=== PATIENT | female | born 1950 | race African-American/Black ===

== ENCOUNTER 2025-02-11 20:27 | Emergency (ER) | payer MEDICARE, MEDICAID ==
[~2025-02-11] VITALS: Ht 170.2 cm; Wt 80.0 kg
[2025-02-11 20:44] VITALS: TEMP 37.1; O2SAT 100
[2025-02-11 21:16] LABS: BASOPHILS % 0.6 % (0.0-2.0); EOSINOPHILS % 0.7 % (0.0-5.0); HEMATOCRIT. 32.7 % (36.0-48.0); HEMOGLOBIN. 10.7 g/dL (12.0-16.0); LYMPHOCYTES % 18.5 % (20.0-50.0); MEAN PLATELET VOLUME 8.8 fl (7.4-10.4); MONOCYTES % 7.7 % (2.0-8.0); NEUTROPHILS % 72.5 % (40.0-76.0); PLATELET 304 x1000/uL (130-400); RED BLOOD CELL COUNT 3.96 mill/uL (4.2-5.4); RED CELL DISTRIBUTION WIDTH 14.8 % (11.6-14.6)
[2025-02-11 21:29] LABS: CREATININE 1.6 mg/dL (0.6-1.0); UREA NITROGEN BLOOD 30 mg/dL (9-23)
[2025-02-11 21:30] LABS: TROPONIN I HIGH SENSITIVITY 13 ng/L (3.0-34)
[2025-02-11] MEDS ORDERED: CLONIDINE 0.2MG TABLET PO ONE (22:45)
[2025-02-11] MEDS: LEVETIRACETAM 500MG PREMIX 100 ML IV ONE (23:12)
[2025-02-11] MEDS: CLONIDINE 0.1MG TABLET PO SCH (23:28)
[2025-02-12 00:10] LABS: TROPONIN I HIGH SENSITIVITY 18 ng/L (3.0-34)
[2025-02-12 00:38] VITALS: BP 125/53; PULSE 60; RESP 12; O2SAT 98
[2025-02-13] MEDS ORDERED: KEPP500 MT (09:43)
[2025-02-13] MEDS ORDERED: OXYB-52 PO (09:43)
[2025-02-13] MEDS ORDERED: FLUT50BL (09:43)
[2025-02-13] MEDS ORDERED: ROSU40TA MT (09:43)
[2025-02-13] MEDS ORDERED: BIMA2.5D4 EACHEYE (09:49)
[2025-02-13] MEDS ORDERED: AMLO5TAB6 MT (09:49)
[2025-02-13] MEDS ORDERED: FERR-71 MT (09:49)
[2025-02-13] MEDS ORDERED: BENA20TA77 MT (09:49)
[2025-02-13] MEDS ORDERED: [UNRECOGNIZED DRUG - OTHER] BOTHEYE (09:49)
[2025-02-13] MEDS ORDERED: APIX5TAB MT (09:49)
[2025-02-13] MEDS ORDERED: PIOG30TA10 MT (09:49)
[2025-02-13] MEDS ORDERED: CETI-89 MT (09:49)
[2025-02-13] MEDS ORDERED: METF-416 MT (09:49)
[2025-02-13] MEDS ORDERED: HYDR12.54 MT (09:49)
[2025-02-13] MEDS ORDERED: SERT25TA MT (09:49)
[2025-02-13] MEDS ORDERED: FAMO20TA8 MT (09:49)
[2025-02-13] MEDS ORDERED: CALC-861 MT (09:49)
[2025-02-13] MEDS ORDERED: APIX5TAB PO (10:31)
[2025-02-13] MEDS ORDERED: AMLO5TAB88 PO (10:32)
[2025-02-13] MEDS ORDERED: BENA-8 PO (10:32)
[2025-02-13] MEDS ORDERED: SERT25TA74 PO (10:32)
[2025-02-13] MEDS ORDERED: FERR325T30 PO (10:32)
[2025-02-13] MEDS ORDERED: HYDR25TA PO (10:32)
== END 2025-02-12 00:45 | disposition home or self-care (01) ==
LOC: ER 20:27 → CANBEDREQ 02-12 00:19 → ER 02-12 00:45
DX: G40.909 Epilepsy, unspecified, not intractable, without status epilepticus (principal); I10 Essential (primary) hypertension; F79 Unspecified intellectual disabilities; Z86.011 Personal history of benign neoplasm of the brain; Z79.899 Other long term (current) drug therapy
CPT/HCPCS: 99291; 96365; 70450; 80048; 85025; 84484; 36415; 71045; 93005; J1953

== ENCOUNTER 2025-02-12 20:49 | Inpatient (IN) | payer MEDICARE, MEDICAID ==
[~2025-02-12] VITALS: Ht 167.6 cm; Wt 84.8 kg
[2025-02-12 20:52] VITALS: O2SAT 96
[2025-02-12 22:53] LABS: BASOPHILS % 1.2 % (0.0-2.0); EOSINOPHILS % 1.9 % (0.0-5.0); HEMATOCRIT. 30.6 % (36.0-48.0); HEMOGLOBIN. 10.0 g/dL (12.0-16.0); LYMPHOCYTES % 40.9 % (20.0-50.0); MEAN PLATELET VOLUME 8.8 fl (7.4-10.4); MONOCYTES % 8.4 % (2.0-8.0); NEUTROPHILS % 47.6 % (40.0-76.0); PLATELET 260 x1000/uL (130-400); RED BLOOD CELL COUNT 3.69 mill/uL (4.2-5.4); RED CELL DISTRIBUTION WIDTH 15.0 % (11.6-14.6)
[2025-02-12 23:06] LABS: CREATININE 1.6 mg/dL (0.6-1.0); ETHANOL BLOOD < 10 mg/dL (<10); UREA NITROGEN BLOOD 27 mg/dL (9-23)
[2025-02-12 23:07] LABS: TROPONIN I HIGH SENSITIVITY 14 ng/L (3.0-34)
[2025-02-13] MEDS ORDERED: CLONIDINE 0.1MG TABLET PO PRN (04:30)
[2025-02-13] MEDS ORDERED: ONDANSETRON HCL 4MG/2ML INJ IV PRN (04:30)
[2025-02-13] MEDS ORDERED: IPRATROPIUM/ALBUTEROL 0.5-3(2.5)MG/3ML NEB HHN PRN (04:30)
[2025-02-13] MEDS ORDERED: ACETAMINOPHEN 325MG TABLET PO PRN ×2 (04:30)
[2025-02-13 05:21] LABS: CLARITY URINE CLEAR (CLEAR); COLOR URINE YELLOW (YELLOW); GLUCOSE URINE NEGATIVE (NEGATIVE); KETONES URINE NEGATIVE (NEGATIVE); LEUKOCYTE ESTERASE URINE TRACE (NEGATIVE); NITRITE URINE NEGATIVE (NEGATIVE); OCCULT BLOOD URINE NEGATIVE (NEGATIVE); PH URINE 6.5 (4.5-8.0); PROTEIN URINE NEGATIVE (NEGATIVE); SPECIFIC GRAVITY URINE 1.005 (1.005-1.030); UROBILINOGEN URINE 0.2 E.U./dL (0.2-1.0)
[2025-02-13 05:38] LABS: *AMPHETAMINES SCREEN URINE NEGATIVE (NEGATIVE); *BARBITURATES SCREEN URINE NEGATIVE (NEGATIVE); *BENZODIAZEPINES SCREEN URINE NEGATIVE (NEGATIVE); *COCAINE SCREEN URINE NEGATIVE (NEGATIVE); METHADONE URINE SCREEN NEGATIVE (NEGATIVE)
[2025-02-13 05:39] LABS: CANNABINOID URINE SCREEN NEGATIVE (NEGATIVE); ECSTASY MDMA SCREEN URINE NEGATIVE (NEGATIVE); OPIATES URINE SCREEN NEGATIVE (NEGATIVE); PHENCYCLIDINE URINE SCREEN NEGATIVE (NEGATIVE)
[2025-02-13 06:45] VITALS: BP 153/64; PULSE 57; RESP 18; TEMP 36.5848
[2025-02-13 06:59] LABS: BACTERIA URINE TRACE; RBC URINE NONE SEEN /hpf (0-2); SQUAMOUS EPITHELIAL CELL URINE NONE SEEN /lpf (RARE/1+); WBC URINE 0-2 /hpf (0-2)
[2025-02-13 08:00] VITALS: BP 134/60; PULSE 56; RESP 18; TEMP 36; O2SAT 100
[2025-02-13 08:23] VITALS: BP 123/42; PULSE 52; RESP 16; TEMP 36.7; O2SAT 100
[2025-02-13] MEDS ORDERED: FLUT50BL (09:43)
[2025-02-13] MEDS ORDERED: OXYB-52 PO (09:43)
[2025-02-13] MEDS ORDERED: ROSU40TA MT (09:43)
[2025-02-13] MEDS ORDERED: KEPP500 MT (09:43)
[2025-02-13] MEDS ORDERED: HYDR12.54 MT (09:49)
[2025-02-13] MEDS ORDERED: APIX5TAB MT (09:49)
[2025-02-13] MEDS ORDERED: CALC-861 MT (09:49)
[2025-02-13] MEDS ORDERED: METF-416 MT (09:49)
[2025-02-13] MEDS ORDERED: [UNRECOGNIZED DRUG - OTHER] BOTHEYE (09:49)
[2025-02-13] MEDS ORDERED: FERR-71 MT (09:49)
[2025-02-13] MEDS ORDERED: BIMA2.5D4 EACHEYE (09:49)
[2025-02-13] MEDS ORDERED: CETI-89 MT (09:49)
[2025-02-13] MEDS ORDERED: AMLO5TAB6 MT (09:49)
[2025-02-13] MEDS ORDERED: FAMO20TA8 MT (09:49)
[2025-02-13] MEDS ORDERED: PIOG30TA10 MT (09:49)
[2025-02-13] MEDS ORDERED: BENA20TA77 MT (09:49)
[2025-02-13] MEDS ORDERED: SERT25TA MT (09:49)
[2025-02-13] MEDS ORDERED: MEDICATION NOT ON FORMULARY EA (Hydrochlorothiazide 1 TAB) MT SCH (10:30)
[2025-02-13] MEDS ORDERED: APIX5TAB PO (10:31)
[2025-02-13] MEDS ORDERED: FERR325T30 PO (10:32)
[2025-02-13] MEDS ORDERED: BENA-8 PO (10:32)
[2025-02-13] MEDS ORDERED: HYDR25TA PO (10:32)
[2025-02-13] MEDS ORDERED: SERT25TA74 PO (10:32)
[2025-02-13] MEDS ORDERED: AMLO5TAB88 PO (10:32)
[2025-02-13] MEDS ORDERED: LEVETIRACETAM 500MG TABLET ONE (11:32)
[2025-02-13] MEDS ORDERED: AMLODIPINE 5MG TABLET ONE (11:32)
[2025-02-13] MEDS ORDERED: FERROUS SULFATE 325MG TABLET PO ONE (11:34)
[2025-02-13] MEDS ORDERED: APIXABAN 5 MG TABLET PO ONE (11:34)
[2025-02-13] MEDS ORDERED: SERTRALINE HCL 50MG TABLET ONE (11:34)
[2025-02-13] MEDS ORDERED: FAMOTIDINE 20MG TABLET ONE (11:34)
[2025-02-13] MEDS ORDERED: OXYBUTYNIN CHLORIDE 5MG TABLET ONE (11:35)
[2025-02-13] MEDS: APIXABAN 5 MG TABLET PO SCH (11:36)
[2025-02-13] MEDS: FERROUS SULFATE 325MG TABLET PO SCH (11:37)
[2025-02-13] MEDS: OXYBUTYNIN CHLORIDE 5MG TABLET PO SCH (11:37)
[2025-02-13] MEDS: AMLODIPINE 5MG TABLET PO SCH (11:37)
[2025-02-13] MEDS: FAMOTIDINE 20MG TABLET PO SCH (11:37)
[2025-02-13] MEDS: LEVETIRACETAM 500MG TABLET PO SCH (11:37)
[2025-02-13] MEDS ORDERED: SERTRALINE HCL 25MG TABLET ONE (11:39)
[2025-02-13] MEDS: SERTRALINE HCL 25MG TABLET PO SCH (11:41)
[2025-02-13 12:00] VITALS: BP 108/51; PULSE 61; RESP 18; TEMP 36.1; O2SAT 100
[2025-02-13] MEDS: HYDROCHLOROTHIAZIDE 12.5MG CAPSULE PO SCH (12:00)
[2025-02-13] MEDS: LISINOPRIL 20MG TABLET PO SCH (12:00)
[2025-02-13] MEDS ORDERED: LISINOPRIL 20MG TABLET ONE (12:35)
[2025-02-13] MEDS ORDERED: LISINOPRIL 2.5MG TABLET ONE (12:35)
[2025-02-13] MEDS ORDERED: CALCIUM CARBONATE/VITAMIN D3 500MG TABLET ONE (12:35)
[2025-02-13] MEDS ORDERED: HYDROCHLOROTHIAZIDE 12.5MG CAPSULE ONE (12:40)
[2025-02-13 12:49] LABS: TROPONIN I HIGH SENSITIVITY 13 ng/L (3.0-34)
[2025-02-13] MEDS: CALCIUM CARBONATE/VITAMIN D3 500MG TABLET PO SCH (13:31)
[2025-02-13 16:00] VITALS: BP 91/50; PULSE 65; RESP 18; TEMP 36.2; O2SAT 99
[2025-02-13] MEDS: MEMANTINE HCL 5MG TABLET PO SCH (18:36)
[2025-02-13 20:00] VITALS: BP 110/60; PULSE 59; RESP 17; RESP 18; TEMP 36.3; O2SAT 100
[2025-02-13] MEDS: ATORVASTATIN CALCIUM 40MG TABLET PO SCH (20:56)
[2025-02-14] VITALS (7 sets, daily range): BP systolic 99–128; BP diastolic 40–95; PULSE 59–78; RESP 16–20; TEMP 36.2–36.7; O2SAT 98–100
[2025-02-14] MEDS ORDERED: [UNRECOGNIZED DRUG - OTHER] MT SCH (09:00)
[2025-02-14] MEDS ORDERED: BENAZEPRIL HCL MT SCH (09:00)
[2025-02-14] MEDS ORDERED: MEDICATION NOT ON FORMULARY EA (Rosuvastatin Calcium (Crestor) 1 TAB) MT SCH (09:00)
[2025-02-14] MEDS ORDERED: CALCIUM CARBONATE MT SCH (09:00)
[2025-02-14] MEDS ORDERED: VITAMIN D3 MT SCH (09:00)
[2025-02-14 13:39] LABS: BASOPHILS % 1.3 % (0.0-2.0); EOSINOPHILS % 1.5 % (0.0-5.0); HEMATOCRIT. 31.8 % (36.0-48.0); HEMOGLOBIN. 10.5 g/dL (12.0-16.0); LYMPHOCYTES % 35.0 % (20.0-50.0); MEAN PLATELET VOLUME 8.8 fl (7.4-10.4); MONOCYTES % 9.7 % (2.0-8.0); NEUTROPHILS % 52.5 % (40.0-76.0); PLATELET 275 x1000/uL (130-400); RED BLOOD CELL COUNT 3.77 mill/uL (4.2-5.4); RED CELL DISTRIBUTION WIDTH 14.5 % (11.6-14.6)
[2025-02-14 13:57] LABS: CREATININE 1.5 mg/dL (0.6-1.0); UREA NITROGEN BLOOD 23 mg/dL (9-23)
[2025-02-14 13:59] LABS: PHOSPHORUS 2.8 mg/dL (2.5-4.9)
[2025-02-14 14:27] LABS: VITAMIN B12 SERUM 571 pg/mL (211-911)
[2025-02-15] VITALS: BP 134/43; PULSE 56; RESP 20; TEMP 36.3; O2SAT 99
[2025-02-15 04:00] VITALS: BP 114/53; PULSE 59; RESP 20; TEMP 36.2; O2SAT 100
[2025-02-15 08:00] VITALS: BP 113/56; PULSE 65; RESP 18; TEMP 36.6; O2SAT 100
[2025-02-15 10:21] LABS: BASOPHILS % 0.5 % (0.0-2.0); EOSINOPHILS % 1.7 % (0.0-5.0); HEMATOCRIT. 32.5 % (36.0-48.0); HEMOGLOBIN. 10.6 g/dL (12.0-16.0); LYMPHOCYTES % 29.2 % (20.0-50.0); MEAN PLATELET VOLUME 8.7 fl (7.4-10.4); MONOCYTES % 8.9 % (2.0-8.0); NEUTROPHILS % 59.7 % (40.0-76.0); PLATELET 284 x1000/uL (130-400); RED BLOOD CELL COUNT 3.93 mill/uL (4.2-5.4); RED CELL DISTRIBUTION WIDTH 14.8 % (11.6-14.6)
[2025-02-15 11:01] LABS: UREA NITROGEN BLOOD 29 mg/dL (9-23)
[2025-02-15 11:02] LABS: CREATININE 2.0 mg/dL (0.6-1.0)
[2025-02-15 11:03] LABS: PHOSPHORUS 3.3 mg/dL (2.5-4.9)
[2025-02-15 12:00] VITALS: BP 129/54; PULSE 62; RESP 18; TEMP 36.5; O2SAT 100
[2025-02-15 16:00] VITALS: BP 129/54; PULSE 62; RESP 18; TEMP 36.5; O2SAT 100
[2025-02-15 20:00] VITALS: BP 107/77; PULSE 69; RESP 20; TEMP 36.3; O2SAT 100
[2025-02-16] VITALS: BP 95/51; PULSE 72; RESP 18; TEMP 36.5; O2SAT 99
[2025-02-16 04:00] VITALS: BP 111/51; PULSE 57; RESP 18; TEMP 36.6; O2SAT 100
[2025-02-16 08:00] VITALS: BP 112/59; PULSE 68; RESP 18; TEMP 36.6; O2SAT 100
[2025-02-16] MEDS: AMLODIPINE 10MG TABLET PO SCH (09:00)
[2025-02-16] MEDS: LISINOPRIL 10MG TABLET PO SCH (09:00)
[2025-02-16 12:00] VITALS: BP 99/47; PULSE 66; RESP 16; TEMP 36.6; O2SAT 100
[2025-02-16 16:00] VITALS: BP 162/57; PULSE 64; RESP 19; TEMP 36.3; O2SAT 100
[2025-02-16 20:00] VITALS: BP 121/52; PULSE 66; RESP 20; TEMP 36.4; O2SAT 98
[2025-02-17] VITALS: BP 99/33; PULSE 62; RESP 20; TEMP 36; O2SAT 98
[2025-02-17 04:00] VITALS: BP 120/57; PULSE 63; RESP 20; TEMP 36.3; O2SAT 98
[2025-02-17 08:00] VITALS: BP 136/54; PULSE 56; RESP 17; TEMP 36.1; O2SAT 97
[2025-02-17 12:00] VITALS: BP 116/51; PULSE 69; RESP 18; TEMP 36.2; O2SAT 97
[2025-02-17 13:05] LABS: BASOPHILS % 1.2 % (0.0-2.0); EOSINOPHILS % 1.2 % (0.0-5.0); HEMATOCRIT. 33.2 % (36.0-48.0); HEMOGLOBIN. 10.7 g/dL (12.0-16.0); LYMPHOCYTES % 30.0 % (20.0-50.0); MEAN PLATELET VOLUME 9.0 fl (7.4-10.4); MONOCYTES % 9.3 % (2.0-8.0); NEUTROPHILS % 58.3 % (40.0-76.0); PLATELET 266 x1000/uL (130-400); RED BLOOD CELL COUNT 3.94 mill/uL (4.2-5.4); RED CELL DISTRIBUTION WIDTH 15.0 % (11.6-14.6)
[2025-02-17 13:20] LABS: CREATININE 1.6 mg/dL (0.6-1.0)
[2025-02-17 13:21] LABS: UREA NITROGEN BLOOD 31 mg/dL (9-23)
[2025-02-17 13:23] LABS: PHOSPHORUS 2.8 mg/dL (2.5-4.9)
[2025-02-17 16:00] VITALS: BP 137/56; PULSE 62; RESP 17; TEMP 36.2; O2SAT 97
[2025-02-17 20:00] VITALS: BP 123/53; PULSE 69; RESP 18; TEMP 36.4; O2SAT 100
[2025-02-18] VITALS: BP 106/57; PULSE 68; RESP 18; TEMP 36.9; O2SAT 98
[2025-02-18 04:00] VITALS: BP 105/49; PULSE 64; RESP 18; TEMP 36.6; O2SAT 95
[2025-02-18 08:00] VITALS: BP 128/51; PULSE 64; RESP 17; TEMP 36.3; O2SAT 98
[2025-02-18] MEDS ORDERED: BENA-8 PO (10:48)
[2025-02-18] MEDS ORDERED: PIOG30TA10 MT ×2 (10:48→12:45)
[2025-02-18] MEDS ORDERED: AMLO5TAB88 PO (10:48)
[2025-02-18] MEDS ORDERED: OXYB-52 PO (10:48)
[2025-02-18] MEDS ORDERED: ROSU40TA MT (10:48)
[2025-02-18] MEDS ORDERED: FERR-71 MT (10:48)
[2025-02-18] MEDS ORDERED: SERT25TA MT (10:48)
[2025-02-18] MEDS ORDERED: FAMO20TA8 MT (10:48)
[2025-02-18] MEDS ORDERED: KEPP500 MT (10:48)
[2025-02-18] MEDS ORDERED: FLUT50BL NAS (10:48)
[2025-02-18] MEDS ORDERED: HYDR12.54 MT ×2 (10:48→11:45)
[2025-02-18 11:20] LABS: BASOPHILS % 1.0 % (0.0-2.0); EOSINOPHILS % 1.9 % (0.0-5.0); HEMATOCRIT. 33.1 % (36.0-48.0); HEMOGLOBIN. 10.6 g/dL (12.0-16.0); LYMPHOCYTES % 25.9 % (20.0-50.0); MEAN PLATELET VOLUME 9.1 fl (7.4-10.4); MONOCYTES % 7.9 % (2.0-8.0); NEUTROPHILS % 63.3 % (40.0-76.0); PLATELET 245 x1000/uL (130-400); RED BLOOD CELL COUNT 3.94 mill/uL (4.2-5.4); RED CELL DISTRIBUTION WIDTH 14.5 % (11.6-14.6)
[2025-02-18 11:34] LABS: CREATININE 1.6 mg/dL (0.6-1.0); UREA NITROGEN BLOOD 30 mg/dL (9-23)
[2025-02-18] MEDS ORDERED: AMLO5TAB6 MT (11:34)
[2025-02-18 11:37] LABS: PHOSPHORUS 3.1 mg/dL (2.5-4.9)
[2025-02-18] MEDS ORDERED: FAMO20TA8 PO (11:45)
[2025-02-18] MEDS ORDERED: OXYB5TAB21 PO (11:45)
[2025-02-18] MEDS ORDERED: SERT25TA74 PO (11:45)
[2025-02-18] MEDS ORDERED: APIX5TAB PO (11:45)
[2025-02-18] MEDS ORDERED: KEPP500 PO (11:45)
[2025-02-18] MEDS ORDERED: AMLO10TA80 PO (11:45)
[2025-02-18] MEDS ORDERED: LIP40 MT (11:45)
[2025-02-18] MEDS ORDERED: CALC-1098 MT (11:47)
[2025-02-18 12:16] VITALS: BP 118/56; PULSE 75; RESP 17; TEMP 36.2; O2SAT 98
[2025-02-18] MEDS ORDERED: ROSU40TA PO (12:45)
[2025-02-18 15:07] VITALS: BP 107/53; PULSE 67; RESP 17; TEMP 97.5
[2025-02-18 16:00] VITALS: BP 107/53; PULSE 67; RESP 17; TEMP 36.4; O2SAT 98
== END 2025-02-18 17:10 | disposition home or self-care (01) | DRG 100 ==
LOC: ER 20:49 → EDBEDREQTM 02-13 02:31 → EDBEDREQDT 02-13 02:31 → EDBEDREQ 02-13 02:31 → ENRESERV 02-13 04:03 → 6WST 02-13 04:51
PROVIDERS: ADMIT Student in an Organized Health Care Education/Training Program; ATTEND Student in an Organized Health Care Education/Training Program
PROC: 4A00X4Z Measurement of Central Nervous Electrical Activity, External Approach (ICD-10-PCS; principal; 2025-02-14)
DX: G40.909 Epilepsy, unspecified, not intractable, without status epilepticus (principal); N17.0 Acute kidney failure with tubular necrosis; D64.9 Anemia, unspecified; N18.9 Chronic kidney disease, unspecified; I12.9 Hypertensive chronic kidney disease with stage 1 through stage 4 chronic kidney disease, or unspecified chronic kidney disease; E11.22 Type 2 diabetes mellitus with diabetic chronic kidney disease; Z79.01 Long term (current) use of anticoagulants; Z79.84 Long term (current) use of oral hypoglycemic drugs; Z79.899 Other long term (current) drug therapy
CPT/HCPCS: 36415; 71045; 80048; 80305; 80320; 81003; 82140; 82607; 83735; 84100; 84443; 84484; 85025; 93005; 95816; 96365; 99291; G0378; J1953; G0480

== ENCOUNTER 2025-03-11 20:38 | Inpatient (IN) | payer MEDICARE, MEDICAID ==
[~2025-03-11] VITALS: Ht 167.6 cm; Wt 88.5 kg
[~2025-03-11 20:38] MED LIST: AMLO10TA80 PO; APIX5TAB PO; BENA20TA77 MT; BIMA2.5D4 EACHEYE; CALC-861 MT; FAMO20TA8 PO; FERR325T30 PO; HYDR12.54 MT; KEPP500 PO; LEVE1000 MT; METF-416 MT; OXYB5TAB21 PO; PIOG30TA10 MT; ROSU40TA PO; SERT25TA74 PO
[2025-03-11 20:41] VITALS: O2SAT 99
[2025-03-11] MEDS: SODIUM CHLORIDE 0.9% 1,000 ML IV ONE (20:54)
[2025-03-11] MEDS: LEVETIRACETAM 1000MG PREMIX 100 ML IV ONE (20:56)
[2025-03-11 21:17] LABS: BASOPHILS % 0.6 % (0.0-2.0); EOSINOPHILS % 1.9 % (0.0-5.0); HEMATOCRIT. 30.1 % (36.0-48.0); HEMOGLOBIN. 9.9 g/dL (12.0-16.0); LYMPHOCYTES % 32.0 % (20.0-50.0); MEAN PLATELET VOLUME 9.3 fl (7.4-10.4); MONOCYTES % 10.0 % (2.0-8.0); NEUTROPHILS % 55.5 % (40.0-76.0); PLATELET 290 x1000/uL (130-400); RED BLOOD CELL COUNT 3.63 mill/uL (4.2-5.4); RED CELL DISTRIBUTION WIDTH 13.8 % (11.6-14.6)
[2025-03-11 21:29] LABS: CREATININE 1.5 mg/dL (0.6-1.0); UREA NITROGEN BLOOD 24.0 mg/dL (9-23)
[2025-03-11 22:28] LABS: CLARITY URINE CLEAR (CLEAR); COLOR URINE YELLOW (YELLOW); GLUCOSE URINE NEGATIVE (NEGATIVE); KETONES URINE NEGATIVE (NEGATIVE); LEUKOCYTE ESTERASE URINE NEGATIVE (NEGATIVE); NITRITE URINE NEGATIVE (NEGATIVE); OCCULT BLOOD URINE NEGATIVE (NEGATIVE); PH URINE 5.5 (4.5-8.0); PROTEIN URINE NEGATIVE (NEGATIVE); SPECIFIC GRAVITY URINE 1.020 (1.005-1.030); UROBILINOGEN URINE 0.2 E.U./dL (0.2-1.0)
[2025-03-11 22:41] LABS: *AMPHETAMINES SCREEN URINE NEGATIVE (NEGATIVE); *BARBITURATES SCREEN URINE NEGATIVE (NEGATIVE); *BENZODIAZEPINES SCREEN URINE NEGATIVE (NEGATIVE); *COCAINE SCREEN URINE NEGATIVE (NEGATIVE); METHADONE URINE SCREEN NEGATIVE (NEGATIVE)
[2025-03-11 22:42] LABS: CANNABINOID URINE SCREEN NEGATIVE (NEGATIVE); ECSTASY MDMA SCREEN URINE NEGATIVE (NEGATIVE); OPIATES URINE SCREEN NEGATIVE (NEGATIVE); PHENCYCLIDINE URINE SCREEN NEGATIVE (NEGATIVE)
[2025-03-11] MEDS ORDERED: ACETAMINOPHEN 325MG TABLET PO PRN (23:15)
[2025-03-11] MEDS ORDERED: CLONIDINE 0.1MG TABLET PO PRN (23:15)
[2025-03-11] MEDS ORDERED: ONDANSETRON HCL 4MG/2ML INJ IV PRN (23:15)
[2025-03-11] MEDS ORDERED: LORAZEPAM 2MG/ML UD SYRINGE IV PRN (23:15)
[2025-03-11] MEDS ORDERED: MAGNESIUM/ALUMINUM HYDROXIDE/SIMETHICONE 30ML UDC PO PRN (23:15)
[2025-03-11] MEDS: DIAZEPAM 5 MG/ML 2ML SYR IV ONE (23:49)
[2025-03-12] VITALS (7 sets, daily range): BP systolic 129–157; BP diastolic 54–83; PULSE 66–85; RESP 18–20; TEMP 36.1–36.5292; O2SAT 97–98
[2025-03-12] MEDS ORDERED: INFLUENZA VACCINE 05/PF 0.5 ML SYRINGE IM ONE (06:30)
[2025-03-12] MEDS ORDERED: MEDICATION NOT ON FORMULARY EA (Rosuvastatin Calcium (Crestor) 10 MG) PO SCH (09:00)
[2025-03-12] MEDS ORDERED: APIXABAN 5 MG TABLET PO SCH (09:00)
[2025-03-12] MEDS ORDERED: BENAZEPRIL HCL MT SCH (09:00)
[2025-03-12] MEDS: ENOXAPARIN 30MG/0.3ML SYR SUBCUT SCH (09:03)
[2025-03-12] MEDS: AMLODIPINE 10MG TABLET PO SCH (09:03)
[2025-03-12] MEDS: OXYBUTYNIN CHLORIDE 5MG TABLET PO SCH (09:04)
[2025-03-12] MEDS: LEVETIRACETAM 500MG TABLET PO SCH (09:04)
[2025-03-12] MEDS: LISINOPRIL 20MG TABLET PO SCH (09:04)
[2025-03-12] MEDS: SERTRALINE HCL 25MG TABLET PO SCH (09:04)
[2025-03-12] MEDS: FERROUS SULFATE 325MG TABLET PO SCH (09:04)
[2025-03-12] MEDS: LORAZEPAM 2MG/ML UD SYRINGE IV SCH (18:36)
[2025-03-12] MEDS: ACETAMINOPHEN 325MG TABLET PO PRN (19:19)
[2025-03-12] MEDS ORDERED: MEDICATION NOT ON FORMULARY EA (Bimatoprost (Lumigan) 1 DROP) EACHEYE SCH (21:00)
[2025-03-12] MEDS: ATORVASTATIN CALCIUM 40MG TABLET PO SCH (22:22)
[2025-03-12] MEDS: LATANOPROST 0.005% OPHTH DROPS 2.5ML BOTHEYE SCH (22:23)
[2025-03-13] MEDS ORDERED: LORAZEPAM 2MG/ML UD SYRINGE IV PRN ×2 (03:30→11:45)
[2025-03-13 04:00] VITALS: BP 131/87; PULSE 74; RESP 19; TEMP 36.3; O2SAT 100
[2025-03-13 05:15] LABS: CREATININE 1.3 mg/dL (0.6-1.0); UREA NITROGEN BLOOD 20 mg/dL (9-23)
[2025-03-13 05:18] LABS: PHOSPHORUS 3.0 mg/dL (2.5-4.9)
[2025-03-13 06:31] LABS: BASOPHILS % 0.4 % (0.0-2.0); EOSINOPHILS % 2.7 % (0.0-5.0); HEMATOCRIT. 29.8 % (36.0-48.0); HEMOGLOBIN. 9.8 g/dL (12.0-16.0); LYMPHOCYTES % 38.2 % (20.0-50.0); MEAN PLATELET VOLUME 9.5 fl (7.4-10.4); MONOCYTES % 10.7 % (2.0-8.0); NEUTROPHILS % 48.0 % (40.0-76.0); PLATELET 237 x1000/uL (130-400); RED BLOOD CELL COUNT 3.58 mill/uL (4.2-5.4); RED CELL DISTRIBUTION WIDTH 14.4 % (11.6-14.6)
[2025-03-13 08:00] VITALS: BP 153/70; PULSE 61; RESP 18; TEMP 36.2; O2SAT 100
[2025-03-13] MEDS ORDERED: MAGNESIUM 2 G PREMIX 50 ML IV SCH (11:15)
[2025-03-13 12:00] VITALS: BP 123/63; PULSE 73; RESP 18; TEMP 35.9; O2SAT 99
[2025-03-13] MEDS: LORAZEPAM 2MG/ML UD SYRINGE IV SCH (13:05)
[2025-03-13 13:22] VITALS: BP 125/55; PULSE 60; RESP 17; TEMP 96.7
== END 2025-03-13 14:40 | DRG 100 ==
LOC: ER 20:38 → 6EST 22:42 → EDBEDREQTM 22:47 → EDBEDREQ 22:47 → ENRESERV 03-12 00:52
PROVIDERS: ADMIT Student in an Organized Health Care Education/Training Program; ATTEND Student in an Organized Health Care Education/Training Program
DX: R56.9 Unspecified convulsions (principal); N17.0 Acute kidney failure with tubular necrosis; I10 Essential (primary) hypertension; E11.65 Type 2 diabetes mellitus with hyperglycemia; E83.42 Hypomagnesemia; R62.50 Unspecified lack of expected normal physiological development in childhood; Z79.899 Other long term (current) drug therapy
CPT/HCPCS: 36415; 80048; 80305; 80320; 81003; 82962; 83735; 84100; 85025; 93005; 99291; J1650; J1953; J2060; J7030; G0480